=== PATIENT | male | born 1995 | race African-American/Black ===

== ENCOUNTER 2020-11-13 14:09 | Emergency (ER) | payer OTHER ==
[~2020-11-13] VITALS: Ht 180.3 cm; Wt 100.7 kg
[2020-11-13] MEDS ORDERED: traMADol HCL 50 MG TAB PO ONE (15:15)
[2020-11-13 15:30] VITALS: BP 140/73
== END 2020-11-13 16:04 | disposition home or self-care (01) ==
LOC: ER 14:09
DX: S40.011A Contusion of right shoulder, initial encounter (principal); V53.5XXA Driver of pick-up truck or van injured in collision with car, pick-up truck or van in traffic accident, initial encounter; Y93.89 Activity, other specified; Y92.410 Unspecified street and highway as the place of occurrence of the external cause; Y99.8 Other external cause status
CPT/HCPCS: 72040; 73030